=== PATIENT | female | born 1975 | race Caucasian/White ===

== ENCOUNTER 2022-10-10 12:35 | Emergency (ER) | payer MEDICARE ==
[~2022-10-10] VITALS: Ht 160 cm; Wt 122.0 kg
--- NOTE | 2022-10-10 13:04 | ED Cardiac General ---
History of Present Illness General Chief Complaint: Cardiac/General Problems Stated Complaint: ABNORMAL EKG Nursing Triage Note: ARRIVED VIA AMB FROM [facility] WITH AN ABNORMAL EKG. COMPLAINS OF CHEST PRESSURE. Source: patient, family () Exam Limitations: no limitations History of Present Illness Date Seen by Provider: Oct 10, 2022 Time Seen by Provider: 12:52 Initial Comments Patient is a 47-year-old female who presents to the emergency department today with a chief complaint of having a rapid heartbeat, feeling short of breath and fluid retention. Patient has a history of adrenal insufficiency. She is on daily steroids. She has been on Lasix 20 mg daily until about 6 weeks ago when her primary care at [facility] increased her Lasix to 80 mg in the morning. Patient states that she has tried to come off of the 80 but continues to retain fluid. She endorses orthopnea. She states she cannot lay flat at night. She states she has random intermittent chest pains at rest and with simple housework. These do not radiate or cause her to become sweaty or nauseous. No known history of coronary artery disease. She is not a diabetic. She denies fevers or chills, denies productive cough. She intermittently has hematuria none recently. No dysuria, urgency or frequency. Intermittent alternating diarrhea and constipation nonblack nonbloody. She was at a pulmonology appointment today when she was noted to be tachycardic at ap proximately 130 beats a minute and sent to the ER for evaluation. She states over the last month she has gained 7 pounds she states and fluid alone. No chest pain currently. Timing/Duration: other (1-2 months) Severity: moderate Location: central Activities at Onset: none Prior CP/Workup: no prior chest pain, no prior cardiac workup Modifying Factors: worse with exercise; improves with rest NTG SL CAR PARKER: No ASA po CAR PARKER: No Associated Systoms: Chest Pain (intermittent), Shortness of Air, Weakness, Other (swelling) Allergies and Home Medications Allergies Coded Allergies: celecoxib (Verified Allergy, Severe, HIVES, 10/10/22) codeine (Verified Allergy, Severe, SOA, 10/10/22) Patient Home Medication List Home Medication List Reviewed: Yes Review of Systems Review of Systems Constitutional: see HPI EENTM: No Symptoms Reported Respiratory: Orthopnea, Shortness of Air, SOA With Exertion, SOA at Rest Cardiovascular: Chest Pain ("squeezing" and sharp under left ribs), Edema Gastrointestinal: No Symptoms Reported Genitourinary: Hematuria Musculoskeletal: no symptoms reported Skin: no symptoms reported Psychiatric/Neurological: No Symptoms Reported All Other Systems Reviewed Negative Unless Noted: Yes Past Prebayc-Muwbax-Hhboii Hx Patient Social History Tobacco Use?: Yes Tobacco type used: Cigarettes Smoking Status: Current Everyday Smoker Substance use?: No Alcohol Use?: Yes Alcohol Frequency: Rarely Physical Exam Vital Signs Vital Signs - First Documented 10/10/22 12:42 Temp 36.0 Pulse 133 Resp 16 B/P (MAP) 142/100 (114) Pulse Ox 95 O2 Delivery Room Air Capillary Refill : Less Than 3 Seconds Height, Weight, BMI Height: '" Weight: lbs. oz. kg; 47.00 BMI Method: General Appearance: No Apparent Distress, WD/WN, Obese HEENT: Pale Conjunctivae (L), Pale Conjunctivae (R) Neck: Normal Inspection Respiratory: Lungs Clear, Normal Breath Sounds, No Accessory Muscle Use, No Respiratory Distress Cardiovascular: Regular Rate, Rhythm, Tachycardia (122) Gastrointestinal: Non Tender, Soft, Other (no abdominal wall edema) Extremity: Normal Range of Motion, Pedal Edema (2+) Neurologic/Psychiatric: Alert, Oriented x3, No Motor/Sensory Deficits, Normal Mood/Affect, rn advice II-XII Norm as Tested Skin: Warm/Dry, Pallor Progress/Results/Core Measures Results/Orders Lab Results Laboratory Tests Test 10/10/22 12:58 Range/Units White Blood Count 13.4 H 4.3-11.0 10^3/uL Red Blood Count 4.99 3.80-5.11 10^6/uL Hemoglobin 15.9 11.5-16.0 g/dL Hematocrit 46 35-52 % Mean Corpuscular Volume 93 80-99 fL Mean Corpuscular Hemoglobin 32 25-34 pg Mean Corpuscular Hemoglobin Concent 34 32-36 g/dL Red Cell Distribution Width 13.6 10.0-14.5 % Platelet Count 369 130-400 10^3/uL Mean Platelet Volume 9.2 9.0-12.2 fL Immature Granulocyte % (Auto) 1 % Neutrophils (%) (Auto) 68 42-75 % Lymphocytes (%) (Auto) 23 12-44 % Monocytes (%) (Auto) 6 0-12 % Eosinophils (%) (Auto) 2 0-10 % Basophils (%) (Auto) 1 0-10 % Neutrophils # (Auto) 9.2 H 1.8-7.8 10^3/uL Lymphocytes # (Auto) 3.1 1.0-4.0 10^3/uL Monocytes # (Auto) 0.8 0.0-1.0 10^3/uL Eosinophils # (Auto) 0.2 0.0-0.3 10^3/uL Basophils # (Auto) 0.1 0.0-0.1 10^3/uL Immature Granulocyte # (Auto) 0.1 0.0-0.1 10^3/uL Percent Immature Platelet Fraction 1.9 0.0-7.6 % Prothrombin Time 13.0 12.2-14.7 SEC INR Comment 1.0 0.8-1.4 Activated Partial Thromboplast Time 29 24-35 SEC D-Dimer 0.53 H 0.00-0.49 UG/ML Sodium Level 137 135-145 MMOL/L Potassium Level 4.1 3.6-5.0 MMOL/L Chloride Level 99 98-107 MMOL/L Carbon Dioxide Level 21 21-32 MMOL/L Anion Gap 17 H 5-14 MMOL/L Blood Urea Nitrogen 11 7-18 MG/DL Creatinine 1.15 0.60-1.30 MG/DL Estimat Glomerular Filtration Rate 58 BUN/Creatinine Ratio 10 Glucose Level 214 H 70-105 MG/DL Calcium Level 9.6 8.5-10.1 MG/DL Corrected Calcium 9.4 8.5-10.1 MG/DL Magnesium Level 1.2 L 1.6-2.4 MG/DL Total Bilirubin 0.4 0.1-1.0 MG/DL Aspartate Amino Transf (AST/SGOT) 73 H 5-34 U/L Alanine Aminotransferase (ALT/SGPT) 46 0-55 U/L Alkaline Phosphatase 148 H 40-136 U/L Troponin I < 0.028 <0.028 NG/ML B-Type Natriuretic Peptide < 10.0 <100.0 PG/ML Total Protein 7.6 6.4-8.2 GM/DL Albumin 4.2 3.2-4.5 GM/DL My Orders Orders - AMBER PLOK MD Ekg Tracing (10/10/22 12:41) Cbc With Automated Diff (10/10/22 13:04) Magnesium (10/10/22 13:04) Chest 1 View, Ap/Pa Only (10/10/22 13:04) Ekg Tracing (10/10/22 13:04) Comprehensive Metabolic Panel (10/10/22 13:04) Protime With Inr (10/10/22 13:04) Partial Thromboplastin Time (10/10/22 13:04) O2 (10/10/22 13:04) Monitor-Rhythm Ecg Trace Only (10/10/22 13:04) Lipid Panel (10/11/22 06:00) Ed Iv/Invasive Line Start (10/10/22 13:04) Troponin I Simpson (10/10/22 13:04) Bnp Simpson (10/10/22 13:04) Fibrin Degradation Products (10/10/22 13:04) Magnesium 1 Gm/100 Ml Ivpb (Magnesium Pablo (10/10/22 14:15) Ns Iv 500 Ml (Sodium Chloride 0.9%) (10/10/22 14:07) Ct Angio Chest W (10/10/22 14:07) Iohexol Injection (Omnipaque 350 Mg/Ml 1 (10/10/22 14:15) Received Contrast (Hold Metformin- Contr (10/10/22 14:15) Ns (Ivpb) (Sodium Chloride 0.9% Ivpb Bag (10/10/22 14:15) Medications Given in ED Current Medications Medications Dose Ordered Sig/Gerda Route Start Time Stop Time Status Last Admin Dose Admin Iohexol 100 ml ONCE ONCE IV 10/10/22 14:15 10/10/22 14:16 DC 10/10/22 14:26 87 ML Magnesium Sulfate/ Dextrose 100 ml @ 100 mls/hr ONCE ONCE IV 10/10/22 14:15 10/10/22 15:15 DC 10/10/22 14:39 100 MLS/HR Sodium Chloride 100 ml ONCE ONCE IV 10/10/22 14:15 10/10/22 14:16 DC 10/10/22 14:27 80 ML Vital Signs/I&O 10/10/22 12:42 Temp 36.0 Pulse 133 Resp 16 B/P (MAP) 142/100 (114) Pulse Ox 95 O2 Delivery Room Air Blood Pressure Mean: 114 Progress Progress Note : Time: 15:24 Progress Note Patient seen and evaluated by me. Evaluation today includes physical exam, EKG, "chest pain protocol" to include chest x-ray single view, CBC, Chem-12, BNP, magnesium level, troponin, coags, D-dimer. Pertinent physical exam findings well-developed well-nourished morbidly obese female in no acute distress. Speaks in complete sentences without respiratory distress. Room air oxygen saturations 92 to 93%. No wheezing or crackles noted on physical exam. Heart is regular/tachycardic. Brisk capillary refill with 2+ distal radial pulses. Abdomen is soft. No abdominal wall edema. Patient has 2+ pitting edema in her ankles. Differential diagnosis based on history and physical exam, acute CHF, pulmonary embolism, acute renal failure, acute exacerbation of adrenal insufficiency. Labs independently reviewed by me as well as chest x-ray. Chest x-ray and CT chest angio reviewed and read by radiologist. EKG shows sinus tachycardia at 123 beats a minute with normal intervals and no obvious ST segment elevation or depression. CBC shows a white count of 13.4 with a hemoglobin of 15.9 hematocrit of 46 platelet count of 369. Suspect increased total white blood cell count due to daily steroid use. Chemistry shows a sugar of 214 again likely due to his chronic daily steroid use. Low magnesium at 1.2. Mildly elevated AST at 73. Troponin and BNP are negative/undetectable. Coags are normal. D-dimer is elevated mildly at 0.53 with the upper limit of normal being 0.49. Chest x-ray shows no acute abnormalities. CTA secondary to mildly increased D-dimer, tachycardia and oxygen of 92% is negative for acute pulmonary embolism or any other acute pathology. Patient is treated with 1 g of IV magnesium for her hypomagnesemia. She is also given 500 cc of normal saline post CT angio due to dye load and chronic diuretic use. I have reviewed all the findings with the patient and her who is at the bedside. No concerning findings for supportive laboratory studies for congestive heart failure. She does not have PE. She does not have acute renal failure. She has normal electrolytes and is not hypotensive making acute worsening of her adrenal insufficiency unlikely. We discussed dietary sources of salt in depth. The patient states that she does drink daily sodas. I talked to her about the sodium volume in these drinks. She otherwise does not salt her food or eat canned vegetables. Recommended that she try and decrease her Lasix use as much as possible and if she is having to maintain 80 mg of Lasix in the morning on a daily basis she might need to supplement with prescribed potassium. I advised her to call [facility] and schedule a follow-up appointment in the next week with her primary care provider. Her heart rate has come down from the 130s to about 103. Her oxygen remains at 93% on room air. She has another follow-up scheduled with her donor services technician in a month. Return precautions provided in both verbal and written format. All questions are sought and answered. Patient stable for discharge. Initial ECG Impression Date: Oct 10, 2022 Initial ECG Impression Time: 12:45 Initial ECG Rate: 123 Initial ECG Rhythm: S.Tach Initial ECG Intervals: Normal Comment ow voltage throughout; no ectopy; sinus. no sig ST elevation or depression Diagnostic Imaging Diagonstic Imaging: CT Plain Films/CT/US/NM/MRI: chest Comments [facility] [place], [place] NAME: MANJULA FIERRO Rosa [facility] REC#: [id number] PT STATUS: REG ER : 1975 PHYSICIAN: AMBER POLK MD ADMIT DATE: 10/10/22/ER Draft Date of Exam:10/10/22 CT ANGIO CHEST W PROCEDURE: CT angiography of the chest with contrast. TECHNIQUE: Multiple contiguous axial images were obtained through the chest after uneventful bolus administration of intravenous contrast. 3D reconstructed CTA MIP acquisitions were also performed. Auto Exposure Controls were utilized during the CT exam to meet ALARA standards for radiation dose reduction. INDICATION: Tachycardia, shortness of breath with hypoxia. FINDINGS: There are no intraluminal pulmonary arterial filling defects identified. There is no evidence for pulmonary artery embolus. Thoracic aorta is patent, nonaneurysmal, and nonacute. There is no pleural or pericardial effusion. No consolidating infiltrate or pneumonia. No findings of pulmonary edema. No suspicious lung mass. No thoracic lymphadenopathy. No acute chest wall abnormality. The visible upper abdomen demonstrates partially visualized fatty hepatomegaly with no acute-appearing abnormality. IMPRESSION: 1. Negative for PE or other acute abnormalities. 2. Fatty hepatomegaly. Dictated on workstation # [id number] Dict: 10/10/22 1429 Trans: 10/10/22 1434 [id number] Interpreted by: LYRIC MOFFETT Electronically signed by: [employer]: Xray Plain Films/CT/US/NM/MRI: chest Comments [facility] [place], [place] NAME: MANJULA FIERRO MED REC#: [id number] PT STATUS: REG ER : 1975 PHYSICIAN: AMBER POLK MD ADMIT DATE: 10/10/22/ER Draft Date of Exam:10/10/22 CHEST 1 VIEW, AP/PA ONLY INDICATION: Chest pain COMPARISON: None FINDINGS: Single frontal view of the chest demonstrates normal heart size and pulmonary vascularity. The lungs are well aerated and clear. No large pleural effusion or pneumothorax is seen. The visualized osseous structures show no acute abnormalities. IMPRESSION: 1. No acute cardiopulmonary process. Dictated on workstation # [id number] Dict: 10/10/22 1328 Trans: 10/10/22 1330 [id number] Interpreted by: EVETTE SAEZ MD Electronically signed by: Departure Impression Primary Impression: Peripheral edema Additional Impressions: Hypomagnesemia Tachycardia Disposition: 01 HOME, SELF-CARE Condition: Improved Departure-Patient Inst. Decision time for Depature: 15:30 Referrals: [facility] (PCP/Family) Primary Care Physician Patient Instructions: Low Magnesium Level (DC), Dependent Edema (DC) Add. Discharge Instructions: Continue your daily medications as prescribed. You might try and keep your Lasix dosing at 40 mg in the morning and 40 in the afternoon. You will need your potassium levels checked in a week if you continue to dose at this level. Try and avoid excessive sodium/salt in your diet. Remember that carbonated beverages have a high salt content. Call your primary care physician for a follow-up appointment early next week. Return to the emergency department for any worsening shortness of breath, chest pain, fevers or other emergent, concerning symptoms. I have transmitted a copy of your emergency department visit, labs, imaging to [facility]. Copy Copies To 1: JEROME YADAV KATHRYN M MD Oct 10, 2022 13:04
[2022-10-10 13:10] LABS: HEMOGLOBIN 15.9 g/dL (11.5-16.0); MEAN PLATELET VOLUME 9.2 fL (9.0-12.2); WHITE BLOOD COUNT 13.4 10^3/uL (4.3-11.0)
[2022-10-10 13:12] LABS: BASOPHILS # (AUTO) 0.1 10^3/uL (0.0-0.1); BASOPHILS % (AUTO) 1 % (0-10); EOSINOPHILS # (AUTO) 0.2 10^3/uL (0.0-0.3); EOSINOPHILS % (AUTO) 2 % (0-10); HEMATOCRIT 46 % (35-52); LYMPHOCYTES # (AUTO) 3.1 10^3/uL (1.0-4.0); LYMPHOCYTES % (AUTO) 23 % (12-44); MEAN CORPUSCULAR HEMOGLOBIN 32 pg (25-34); MEAN CORPUSCULAR HGB CONC 34 g/dL (32-36); MEAN CORPUSCULAR VOLUME 93 fL (80-99); MONOCYTES # (AUTO) 0.8 10^3/uL (0.0-1.0); MONOCYTES % (AUTO) 6 % (0-12); NEUTROPHILS # (AUTO) 9.2 10^3/uL (1.8-7.8); NEUTROPHILS % (AUTO) 68 % (42-75); PLATELET COUNT 369 10^3/uL (130-400)
[2022-10-10 13:16] LABS: CHLORIDE 99 MMOL/L (98-107); POTASSIUM 4.1 MMOL/L (3.6-5.0); SODIUM 137 MMOL/L (135-145)
[2022-10-10 13:18] LABS: FIBRIN DEGRADATION PRODUCTS 0.53 UG/ML (0.00-0.49)
[2022-10-10 13:24] LABS: ALBUMIN 4.2 GM/DL (3.2-4.5)
[2022-10-10 13:26] LABS: CALCIUM 9.6 MG/DL (8.5-10.1)
[2022-10-10 13:27] LABS: GLUCOSE 214 MG/DL (70-105); TOTAL PROTEIN 7.6 GM/DL (6.4-8.2)
[2022-10-10 13:28] LABS: CARBON DIOXIDE 21 MMOL/L (21-32)
[2022-10-10 13:29] LABS: BILIRUBIN,TOTAL 0.4 MG/DL (0.1-1.0)
[2022-10-10 13:30] LABS: ALKALINE PHOSPHATASE 148 U/L (40-136); CREATININE SERUM 1.15 MG/DL (0.60-1.30); GFR ESTIMATED 58
[2022-10-10 13:31] LABS: BUN/CREATININE RATIO 10
--- NOTE | 2022-10-10 13:31 | Diagnostic Imaging Report ---
INDICATION: Chest pain COMPARISON: None FINDINGS: Single frontal view of the chest demonstrates normal heart size and pulmonary vascularity. The lungs are well aerated and clear. No large pleural effusion or pneumothorax is seen. The visualized osseous structures show no acute abnormalities. IMPRESSION: 1. No acute cardiopulmonary process. Dictated by: Dictated on workstation # [id number]
[2022-10-10 13:33] LABS: ALANINE AMINOTRANSFERASE 46 U/L (0-55)
[2022-10-10 13:51] LABS: MAGNESIUM 1.2 MG/DL (1.6-2.4)
[2022-10-10] MEDS ORDERED: NS IV 500 ML 500 ML IV STA (14:07)
[2022-10-10] MEDS ORDERED: HOLD METFORMIN - RECEIVED CONTRAST 20 ML VIAL IV SCH (14:15)
[2022-10-10] MEDS ORDERED: NS 100 ML (IVPB) BAG IV ONE (14:15)
[2022-10-10] MEDS ORDERED: MAGNESIUM 1 GM/100 ML IVPB 100 ML IV ONE (14:15)
[2022-10-10] MEDS ORDERED: IOHEXOL 350 MG/ML 100 ML (OMNIPAQUE 350) VIAL IV ONE (14:15)
--- NOTE | 2022-10-10 14:34 | Diagnostic Imaging Report ---
PROCEDURE: CT angiography of the chest with contrast. TECHNIQUE: Multiple contiguous axial images were obtained through the chest after uneventful bolus administration of intravenous contrast. 3D reconstructed CTA MIP acquisitions were also performed. Auto Exposure Controls were utilized during the CT exam to meet ALARA standards for radiation dose reduction. INDICATION: Tachycardia, shortness of breath with hypoxia. FINDINGS: There are no intraluminal pulmonary arterial filling defects identified. There is no evidence for pulmonary artery embolus. Thoracic aorta is patent, nonaneurysmal, and nonacute. There is no pleural or pericardial effusion. No consolidating infiltrate or pneumonia. No findings of pulmonary edema. No suspicious lung mass. No thoracic lymphadenopathy. No acute chest wall abnormality. The visible upper abdomen demonstrates partially visualized fatty hepatomegaly with no acute-appearing abnormality. IMPRESSION: 1. Negative for PE or other acute abnormalities. 2. Fatty hepatomegaly. Dictated by: Dictated on workstation # [id number]
[2022-10-10 15:38] VITALS: BP 113/85
== END 2022-10-10 15:38 | disposition home or self-care (01) ==
LOC: EDUNIT# 12:35 → ER 12:37
DX: R60.9 Edema, unspecified (principal); E83.42 Hypomagnesemia; R00.0 Tachycardia, unspecified; R74.01 Elevation of levels of liver transaminase levels; R79.1 Abnormal coagulation profile; E66.9 Obesity, unspecified; F17.210 Nicotine dependence, cigarettes, uncomplicated; Z68.42 Body mass index [BMI] 45.0-49.9, adult; Z79.52 Long term (current) use of systemic steroids
CPT/HCPCS: 36415; 71045; 71275; 80053; 83735; 83880; 84484; 85025; 85379; 85610; 85730; 93005; 93041

== ENCOUNTER → 2022-11-02 | Outpatient (CLI) | payer MEDICARE ==
[~2022-11-02] MED LIST: RT-ALBUTEROL SULF 2.5 MG/3 ML PRE-MIX VIAL INH ONE
== END ==
LOC: RT 10:15
PROVIDERS: ATTEND Pediatrics
DX: J44.9 Chronic obstructive pulmonary disease, unspecified (principal); R00.0 Tachycardia, unspecified
CPT/HCPCS: 94060; 94726; 94729; C8929; 93306

== ENCOUNTER 2023-02-16 19:53 | Outpatient (CLI) | payer MEDICARE | END 2023-02-17 06:44 | LOC: CANPRECLI → SLEEP 19:53 | PROVIDERS: ATTEND Nurse Practitioner Family | DX: G47.33 Obstructive sleep apnea (adult) (pediatric) (principal); J45.40 Moderate persistent asthma, uncomplicated; E66.01 Morbid (severe) obesity due to excess calories; G47.10 Hypersomnia, unspecified | CPT/HCPCS: 95811 ==

== ENCOUNTER 2023-04-13 20:55 | Outpatient (CLI) | payer MEDICARE | END 2023-04-14 06:24 | LOC: SLEEP 20:55 | PROVIDERS: ATTEND Nurse Practitioner Family | DX: G47.10 Hypersomnia, unspecified (principal); G47.33 Obstructive sleep apnea (adult) (pediatric); J45.40 Moderate persistent asthma, uncomplicated; E66.01 Morbid (severe) obesity due to excess calories; G47.61 Periodic limb movement disorder | CPT/HCPCS: 95811 ==